=== PATIENT | male | born 1980 | race Caucasian/White ===

== ENCOUNTER 2022-10-17 12:51 | Emergency (ER) | payer SELFPAY ==
[2022-10-17] MEDS ORDERED: Acetaminophen 500 MG TAB ONE (13:35)
[2022-10-17] MEDS ORDERED: Ketorolac Tromethamine 30 MG/ML VIAL ONE (14:49)
== END 2022-10-17 16:41 | disposition left against medical advice (07) ==
LOC: MADERS 12:51
DX: B34.9 Viral infection, unspecified (principal); F17.210 Nicotine dependence, cigarettes, uncomplicated
CPT/HCPCS: 87804; 96372; 99283; J1885